=== PATIENT | female | born 1985 | race Caucasian/White ===

== ENCOUNTER 2017-11-25 13:13 | Emergency (ER) | payer BC, OTHER ==
--- NOTE | 2017-11-25 14:33 | RAD REPORT ---
EXAM DESCRIPTION: RAD - Humerus Right - 11/25/2017 2:17 pm CLINICAL HISTORY: Trauma, arm pain COMPARISON: None. FINDINGS: No fracture is identified. There is no dislocation or periosteal reaction noted. No foreig n body or other soft tissue abnormality. IMPRESSION: Negative right humerus examination.
--- NOTE | 2017-11-25 14:37 | RAD REPORT ---
EXAM DESCRIPTION: RAD - Forearm Right - 11/25/2017 2:17 pm CLINICAL HISTORY: Arm pain, blunt force trauma COMPARISON: None. FINDINGS: No fracture is identified. There is no dislocation or periosteal reaction noted. No foreign body or other soft tissue abnormality. IMPRESSION: Negative right forearm examination.
--- NOTE | 2017-11-25 14:40 | EDPHYS ---
Physician Documentation [facility] Name: Justa Wilson Age: 32 yrs Sex: Female : 1985 Arrival Date: 11/25/2017 Time: 13:16 Bed 17 Private MD: None, None ED Physician Quintin Hubbard HPI: 11/25 14:04 This 32 yrs old Female presents to ER via Ambulatory with complaints of Arm kb Pain. 14:04 The patient or guardian complains of contusion, decreased range of motion, injury, kb pain, tenderness. The complaints affect the right arm. Context: The problem was sustained outdoors, resulted from a direct blow, Pt was putting rgoers on her grandfather's grave. She was supporting herself with the left hand on the tombstone and leaning over with her right arm to place the rogers. The tombstone fell over and landed on her arm. Onset: The symptoms/episode began/occurred 3 day(s) ago. Treatment prior to arrival includes: no previous treatment. Modifying factors: The symptoms are alleviated by nothing. the symptoms are aggravated by movement. Associated signs and symptoms: Pertinent positives: decreased range of motion, pain. Severity of symptoms: At their worst the symptoms were moderate, in the emergency department the symptoms are unchanged. The patient has not experienced similar symptoms in the past. The patient has not recently seen a physician. 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 - Social history:: Smoking status: Patient/guardian denies using tobacco. - Ebola Screening: : Patient denies travel to an Ebola-affected area in the 21 days before illness onset. ROS: 14:04 Constitutional: Negative for fever, chills, and weight loss, Cardiovascular: Negative kb for chest pain, palpitations, and edema, Respiratory: Negative for shortness of breath, cough, wheezing, and pleuritic chest pain, Abdomen/GI: Negative for abdominal pain, nausea, vomiting, diarrhea, and constipation, Neuro: Negative for headache, weakness, numbness, tingling, and seizure. 14:04 MS/extremity: Positive for injury or acute deformity, contusion, decreased range of motion, pain, tenderness, of the right arm. Exam: 14:04 Constitutional: This is a well developed, well nourished patient who is awake, alert, kb and in no acute distress. Head/Face: Normocephalic, atraumatic. Chest/axilla: Normal chest wall appearance and motion. Nontender with no deformity. No lesions are appreciated. Cardiovascular: Regular rate and rhythm with a normal S1 and S2. No gallops, murmurs, or rubs. Normal PMI, no JVD. No pulse deficits. Respiratory: Lungs have equal breath sounds bilaterally, clear to auscultation and percussion. No rales, rhonchi or wheezes noted. No increased work of breathing, no retractions or nasal flaring. Abdomen/GI: Soft, non-tender, with normal bowel sounds. No distension or tympany. No guarding or rebound. No evidence of tenderness throughout. Neuro: Awake and alert, GCS 15, oriented to person, place, time, and situation. Cranial nerves II-XII grossly intact. Motor strength 5/5 in all extremities. Sensory grossly intact. Cerebellar exam normal. Normal gait. 14:04 Musculoskeletal/extremity: Extremities: grossly normal except: noted in the right arm: contusion, decreased ROM, pain, tenderness, ROM: limited active range of motion, in the right arm, limited passive range of motion due to pain, in the right arm, Circulation is intact in all extremities. Sensation intact. Vital Signs: 13:41 BP 164 / 85; Pulse 65; Resp 16; Temp 97.9; Pulse Ox 100% on R/A; Weight 70.31 kg (R); aj1 Height 5 ft. 3 in. (160.02 cm) (R); Pain 6/10; 13:41 Body Mass Index 27.46 (70.31 kg, 160.02 cm) aj1 MDM: 13:43 Patient medically screened. kb 14:04 Data reviewed: vital signs, nurses notes. Data interpreted: Pulse oximetry: on room air kb is 100 %. Interpretation: normal. 14:39 Counseling: I had a detailed discussion with the patient and/or guardian regarding: the kb historical points, exam findings, and any diagnostic results supporting the discharge/admit diagnosis, radiology results, the need for outpatient follow up, a family practitioner, to return to the emergency department if symptoms worsen or persist or if there are any questions or concerns that arise at home. 11/25 13:41 Order name: Humerus Right XRAY; Complete Time: 14:37 kb 11/25 13:41 Order name: Forearm Right XRAY; Complete Time: 14:37 kb 11/25 14:38 Order name: Sling; Complete Time: 14:53 kb Administered Medications: No medications were administered Disposition: 16:45 Co-signature as Attending Physician, Quintin Hubbard MD. rn Disposition: 11/25/17 14:39 Discharged to Home. Impression: Contusion of right upper arm, Contusion of right forearm. - Condition is Stable. - Discharge Instructions: Contusion, [id number]. - Prescriptions for Cyclobenzaprine 10 mg Oral Tablet - take 1 tablet by ORAL route every 8 hours As needed; 21 tablet. Diclofenac Sodium 75 mg Oral Tablet, Delayed Release (E.C.) - take 1 tablet by ORAL route 2 times per day As needed; 30 tablet. - Medication Reconciliation Form, Thank You Letter, Antibiotic Education, Prescription Opioid Use form. - Follow up: Emergency Department; When: As needed; Reason: Worsening of condition. Follow up: Private Physician; When: 2 - 3 days; Reason: Recheck today's complaints, Continuance of care, Re-evaluation by your physician. Signatures: Dispatcher [employer] Lashanda Mcgowan, EMPERATRIZC MATERIAL CONTROL SPECIALIST-Bruna Souza RN RN aj1 Julio Ryan, SHANK CARRIER SHANK CARRIER em Quintin Hubbard MD MD rn hemodialysis charge: (The following items were deleted from the chart) 14:55 14:39 11/25/2017 14:39 Discharged to Home. Impression: Contusion of right upper arm; em Contusion of right forearm. Condition is Stable. Forms are Medication Reconciliation Form, Thank You Letter, Antibiotic Education, Prescription Opioid Use. Follow up: Emergency Department; When: As needed; Reason: Worsening of condition. Follow up: Private Physician; When: 2 - 3 days; Reason: Recheck today's complaints, Continuance of care, Re-evaluation by your physician. kb
--- NOTE | 2017-11-25 14:40 | ER ---
Nurse's Notes [facility] Name: Justa Wilson Age: 32 yrs Sex: Female : 1985 Arrival Date: 11/25/2017 Time: 13:16 Bed 17 Private MD: None, None Diagnosis: Contusion of right upper arm;Contusion of right forearm Presentation: 11/25 13:38 Presenting complaint: Patient states: She had a tombstone fall on her arm Sunday aj1 evening, and the pain isn't getting any better. Reports pain to right arm. Limited ROM in right elbow. Transition of care: patient was not received from another setting of care. Onset of symptoms was November 23, 2017. Risk Assessment: Do you want to hurt yourself or someone else? Patient reports no desire to harm self or others. Initial Sepsis Screen: Does the patient meet any 2 criteria? No. Patient's initial sepsis screen is negative. Does the patient have a suspected source of infection? No. Patient's initial sepsis screen is negative. Care prior to arrival: None. 13:38 Method Of Arrival: Ambulatory aj1 13:38 Acuity: FOUZIA 4 aj1 Triage Assessment: 13:41 General: Appears in no apparent distress. uncomfortable, Behavior is calm, cooperative, aj1 appropriate for age. Pain: Complains of pain in right arm Pain currently is 6 out of 10 on a pain scale. at worst was 10 out of 10 on a pain scale. Neuro: Level of Consciousness is awake, alert, obeys commands, Speech is normal. Cardiovascular: Patient's skin is warm and dry. Respiratory: Airway is patent Respiratory effort is even, unlabored, Respiratory pattern is regular, symmetrical. Musculoskeletal: Range of motion: limited in right shoulder and right elbow. 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 - Social history:: Smoking status: Patient/guardian denies using tobacco. - Ebola Screening: : Patient denies travel to an Ebola-affected area in the 21 days before illness onset. Screenin:33 Abuse screen: Denies threats or abuse. Nutritional screening: No deficits noted. em Tuberculosis screening: No symptoms or risk factors identified. Fall Risk None identified. Assessment: 14:00 General: Appears in no apparent distress. comfortable, Behavior is calm, cooperative. em Pain: Complains of pain in right elbow and right arm. Neuro: Level of Consciousness is awake, alert, obeys commands, Oriented to person, place, time, situation. Cardiovascular: Capillary refill < 3 seconds Patient's skin is warm and dry. Respiratory: Airway is patent Respiratory effort is even, unlabored, Respiratory pattern is regular, symmetrical. GI: Abdomen is obese. : No signs and/or symptoms were reported regarding the genitourinary system. EENT: No signs and/or symptoms were reported regarding the EENT system. Derm: Skin is intact, Skin is pink, warm \T\ dry. Musculoskeletal: Range of motion: intact in all extremities. 14:10 General: The previous assessment is accurate, call light remains within reach.. ss Vital Signs: 13:41 BP 164 / 85; Pulse 65; Resp 16; Temp 97.9; Pulse Ox 100% on R/A; Weight 70.31 kg (R); aj1 Height 5 ft. 3 in. (160.02 cm) (R); Pain 6/10; 13:41 Body Mass Index 27.46 (70.31 kg, 160.02 cm) aj1 ED Course: 13:16 Patient arrived in ED. sb2 13:17 None, None is Private Physician. sb2 13:40 Triage completed. aj1 13:41 [facility]anda Benavides [facility]NP-C [facility]. kb 13:41 Quintin Hubbard MD is Attending Physician. kb 13:41 Arm band placed on Patient placed in an exam room. aj1 13:50 Julio Ryan LVN is Primary Nurse. em 14:14 Humerus Right XRAY In Process Unspecified. EDMS 14:14 Forearm Right XRAY In Process Unspecified. EDMS 14:33 Patient has correct armband on for positive identification. Bed in low position. Call em light in reach. Adult w/ patient. 14:33 No provider procedures requiring assistance completed. Patient did not have IV access em during this emergency room visit. Administered Medications: No medications were administered Outcome: 14:39 Discharge ordered by . fransico 14:55 Discharged to home ambulatory. em 14:55 Condition: good 14:55 Discharge instructions given to patient, Instructed on discharge instructions, follow up and referral plans. no drinking with medication, no driving heavy equipment, medication usage, Demonstrated understanding of instructions, follow-up care, medications, Prescriptions given X 2. 14:55 Patient left the ED. em Signatures: Dispatcher [employer] EDCT Lashanda Benavides, FINE GRADE BULLDOZER OPERATOR-C FINE GRADE BULLDOZER OPERATOR-Ckb Bruna Lyons, RN RN aj1 Julio Ryan, PRACTICE LEAD PRACTICE LEAD em Albertina Skinner, LISA RN ss Keyla Whitten sb2
[2017-11-25 15:01] VITALS: BP 164/85; TEMP 97.9; O2SAT 100
== END 2017-11-25 14:55 | disposition home or self-care (01) ==
LOC: ER 13:13
DX: S50.11XA Contusion of right forearm, initial encounter (principal); S40.021A Contusion of right upper arm, initial encounter; W20.8XXA Other cause of strike by thrown, projected or falling object, initial encounter; Y93.H9 Activity, other involving exterior property and land maintenance, building and construction; Y92.89 Other specified places as the place of occurrence of the external cause
CPT/HCPCS: 99283